=== PATIENT | male | born 1950 | race Caucasian/White ===

== ENCOUNTER 2020-08-20 09:34 | Outpatient (REF) | payer MEDICARE, SELFPAY ==
[2020-08-21 09:46] LABS: Urine Cytology See Pathology rpt
== END 2020-08-20 09:35 | disposition home or self-care (01) ==
LOC: CF 09:34
PROVIDERS: Visit Provider Urology
DX: N40.0 Benign prostatic hyperplasia without lower urinary tract symptoms (principal); Z46.6 Encounter for fitting and adjustment of urinary device; Z85.51 Personal history of malignant neoplasm of bladder
CPT/HCPCS: 52332; 52000; 81002; 88112

== ENCOUNTER → 2020-08-20 09:34 | Outpatient (BNVA) | payer MEDICARE, SELFPAY | PROVIDERS: Visit Provider Urology | DX: Z85.51 Personal history of malignant neoplasm of bladder (principal); N40.0 Benign prostatic hyperplasia without lower urinary tract symptoms | CPT/HCPCS: 52000; 99212 ==